=== PATIENT | male | born 1965 | race Two or more races ===

== ENCOUNTER → 2025-04-30 | Outpatient (CLI) | payer OTHER, SELFPAY ==
--- NOTE | 2025-04-30 | XR_ITS ---
Examination: Knee, right , 3 views Technique: Knee AP, lateral, oblique 3 views Date and time of exam: April 30, 2025 1233 hours INDICATIONS: Patient fell last month with injury the knee, knee pain. FINDINGS: Minimal narrowing medial patellofemoral joints No fracture or dislocation IMPRESSION: No fracture or dislocation
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
--- NOTE | 2025-04-30 | XR_ITS ---
Examination: Lumbar spine 3 views TECHNIQUE: AP, lateral, coned lateral lower lumbar spine 3 views Date and time: April 30, 2025 12:50 PM INDICATIONS: Patient fell last month with injury to the lower back, lower back pain. FINDINGS: Adequate alignment lumbar vertebral bodies on the lateral view No lumbar fracture Advanced degenerative disc disease L1-L2, L2-L3 with very prominent anterior osteophytes No spondylolisthesis IMPRESSION: No acute fracture Advanced degenerative disc disease L1-L2, L2-L3
== END | disposition home or self-care (01) ==
LOC: CDIM 12:12
PROVIDERS: Referring Provider Nurse Practitioner Family; Visit Provider Nurse Practitioner Family
DX: M16.12 Unilateral primary osteoarthritis, left hip (principal); M51.360 Other intervertebral disc degeneration, lumbar region with discogenic back pain only; M25.852 Other specified joint disorders, left hip; S39.92XA Unspecified injury of lower back, initial encounter; S89.92XA Unspecified injury of left lower leg, initial encounter; S79.912A Unspecified injury of left hip, initial encounter; W19.XXXA Unspecified fall, initial encounter
CPT/HCPCS: 72100; 73502; 73562

== ENCOUNTER → 2025-05-13 | Outpatient (CLI) | payer OTHER, SELFPAY ==
--- NOTE | 2025-05-13 10:30 | XR_ITS ---
Exam: MRI knee without contrast, left Date and time of exam: May 13, 2025, 1239 hours INDICATIONS: Twisting injury to the knee March 2025 persistent pain and instability stiffness swelling paresthesias Technique: Multiple axial, coronal, and sagittal sections on the knee have been obtained. T2-Weighted sagittal, fat-suppressed images, TR 3,500, TE 62, T2 weighted coronal fat-saturated images, TR 3,500, TE 62 Proton density sagittal sections, TR 1800, TE 31. T-1 weighted coronal images, TR 524, TE 13.0 Findings: Medial meniscus anterior horn intact. Medial meniscus, body intact. Posterior horn medial meniscus intact. Lateral meniscus anterior horn is intact Lateral meniscus, body is intact Posterior horn lateral meniscus is intact Anterior cruciate ligament moderate to high-grade sprain Posterior cruciate ligament appears intact. Knee effusion is small. Mild increased signal at the patellar insertions quadriceps and patellar tendons Inflammatory change or fracture of Hoffa's fat pad is not seen. Medial patellar facet demonstrates mild thinning. Lateral patellar facet cartilage demonstrates mild thinning. Trochlear cartilage demonstrates mild thinning. Marrow signal adequate. Medial collateral ligament appears intact. No meniscocapsular separation is seen. Illiotibial band and fibular collateral ligament are intact. Biceps femoris tendons appear intact. Medial femoral condylar articular cartilage demonstrates mild thinning. Lateral femoral condylar articular cartilage demonstratesmild thinning. Tibial plateau cartilage demonstrates mild thinning. Impression: Moderate to high-grade sprain anterior cruciate ligament Mild tendinitis patellar and quadriceps tendons
== END | disposition home or self-care (01) ==
LOC: SMRI 09:50
PROVIDERS: Referring Provider Nurse Practitioner Family; Visit Provider Nurse Practitioner Family
DX: S83.512A Sprain of anterior cruciate ligament of left knee, initial encounter (principal); X50.1XXA Overexertion from prolonged static or awkward postures, initial encounter; M67.864 Other specified disorders of tendon, left knee
CPT/HCPCS: 73721